=== PATIENT | female | born 1965 | race Caucasian/White ===

== ENCOUNTER 2017-02-21 10:38 | Emergency (ER) | payer MEDICAID ==
[~2017-02-21] VITALS: Wt 75.0 kg
[~2017-02-21 10:38] MED LIST: IBUP800T25 PO
--- NOTE | 2017-02-21 11:10 | ERD ---
ER Documentation Chief Complaint Date/Time DATE: 02/21/17 TIME: 11:08 Chief Complaint PELVIC PAIN, LOW BACK PAIN, ONSET 2 WEEKS HPI Patient is a 51-year-old female with no past medical history who presents to the ED with bilateral pelvic pain and vaginal bleeding 2 weeks. She states that her menstrual periods are monthly and within normal limits however this month she has been bleeding for the last 2 weeks. She states that she has been using 9 pads a day however in the last 2 days the pads have decreased to 2 a day. She states that the pain is on both sides of her pelvic. She denies chest pain or cough or shortness of breath. Denies leg pain or leg swelling. Denies headache or dizziness. She is taking ibuprofen for her symptoms which has minimally helped. She denies abnormal vaginal discharge. No other complaints. ROS All systems reviewed and are negative except as per history of present illness. Medications Home Meds Active Scripts Ferrous Sulfate* (Ferrous Sulfate*) 325 Mg Tabec, 325 MG PO DAILY for 90 Days, TAB Prov:ROSITA GUTIERREZ PA-C 02/21/17 Ibuprofen* (Motrin*) 600 Mg Tab, 600 MG PO Q6, #30 TAB Prov:ROSITA GUTIERREZ PA-C 02/21/17 Ibuprofen* (Motrin*) 800 Mg Tab, 800 MG PO Q8, #20 TAB Prov:CATHERINE MARX MD 04/01/16 Allergies Allergies: Coded Allergies: No Known Allergies (Verified Allergy, Mild, 02/21/17) PMhx/Soc History of Surgery: Yes (APPENDECTOMY; CHOLEYSTECTOMY;C SECTION) Anesthesia Reaction: No Hx Neurological Disorder: Yes (SYNCOPE) Hx Respiratory Disorders: No Hx Cardiac Disorders: No Hx Psychiatric Problems: No Hx Miscellaneous Medical Probl: Yes (SEVERE ANEMIA ) Hx Alcohol Use: No Hx Substance Use: No Hx Tobacco Use: No Smoking Status: Never smoker FmHx Family History: No coronary disease, No diabetes, No other Physical Exam Vitals Vital Signs Date Time Temp Pulse Resp B/P Pulse Ox O2 Delivery O2 Flow Rate FiO2 02/21/17 10:43 99.3 83 18 125/69 100 Physical Exam GENERAL: Well-developed, well-nourished female. Appears in no acute distress. HEAD: Normocephalic, atraumatic. EYES: Pupils are equally reactive bilaterally. EOMs grossly intact. No conjunctival erythema. ENT: Moist mucous membranes. No uvula deviation. No kissing tonsils. No exudates. NECK: Supple. No lymphadenopathy or thyromegaly. No meningismus. negative kernig. negative brudinski. LUNG: Clear to auscultation bilaterally. No rhonchi, wheezing, rales or coarse breath sounds. HEART: Regular rate and rhythm. No murmurs, rubs or gallops. ABDOMEN: No scars, ecchymosis or rashes noted. Soft, nontender, and nondistended. Positive bowel sounds in all four quadrants. No rebound tenderness , no guarding. (-) McBurneys point tenderness. No CVA tenderness. Bilateral pelvic tenderness and suprapubic tenderness. BACK: No midline tenderness. Extremities: Equal pulses bilaterally. No peripheral clubbing, cyanosis or edema. No unilateral leg swelling. NEUROLOGIC: Alert and oriented. Moving all four extremities. 5/5 strength in all extremities. Normal speech. Steady gait. SKIN: Normal color. Warm and dry. No rashes or lesions. Capillary refill < 2 seconds Result Diagram: 02/21/17 1134 Results 24 hrs Laboratory Tests Test 02/21/17 11:12 02/21/17 11:34 Urine Color YELLOW Urine Clarity SLIGHTLY CLOUDY Urine pH 5.0 Urine Specific [place] 1.027 Urine Ketones TRACEmg/dL Urine Nitrite NEGATIVEmg/dL Urine Bilirubin NEGATIVEmg/dL Urine Urobilinogen NEGATIVEmg/dL Urine Leukocyte Esterase NEGATIVELeu/ul Urine Microscopic RBC 0/HPF Urine Microscopic WBC 1/HPF Urine Squamous Epithelial Cells FEW/HPF Urine Bacteria FEW/HPF Urine Mucus FEW/HPF Urine Hemoglobin NEGATIVEmg/dL Urine Glucose 3+mg/dL Urine Total Protein NEGATIVEmg/dl White Blood Count 5.110^3/ul Red Blood Count 3.3210^6/ul Hemoglobin 9.5g/dl Hematocrit 28.9% Mean Corpuscular Volume 87.0fl Mean Corpuscular Hemoglobin 28.6pg Mean Corpuscular Hemoglobin Concent 32.9g/dl Red Cell Distribution Width 13.2% Platelet Count 03879^3/UL Mean Platelet Volume 11.5fl Neutrophils % 49.5% Lymphocytes % 41.6% Monocytes % 5.7% Eosinophils % 2.2% Basophils % 0.4% Nucleated Red Blood Cells % 0.0/100WBC Neutrophils # 2.510^3/ul Lymphocytes # 2.110^3/ul Monocytes # 0.310^3/ul Eosinophils # 0.110^3/ul Basophils # 0.010^3/ul Nucleated Red Blood Cells # 0.010^3/ul Current Medications Medications (Trade) Dose Ordered Sig/Radha Route PRN Reason Start Time Stop Time Status Last Admin Dose Admin Acetaminophen (Tylenol Tab) 650 mg ONCE ONCE PO 02/21/17 11:30 02/21/17 11:31 DC 02/21/17 11:20 Procedures/MDM ER COURSE: I kept the patient and/or family informed of laboratory and diagnostic imaging results throughout the emergency room course. EKG, MONITORS, & DIAGNOSTIC IMAGING: [place] [id number] Radiology Main Line: [phone] DIAGNOSTIC IMAGING REPORT Patient: KHANG ROMERO : 1965 Age: 51 Sex: F MR #: [id number] DOS: 02/21/17 1103 Ordering MD: ROSITA GUTIERREZ PA-C Location: [facility] Room/Bed: PROCEDURE: US Pelvis CLINICAL INDICATION: PELVIC PAIN, VAGINAL BLEEDING TECHNIQUE: Multiple sonographic images of the pelvis were obtained utilizing a transabdominal and endovaginal technique. The images were reviewed on a PACS workstation. COMPARISON: Pelvic ultrasound from 12/07/2014 LMP: 01/29/2017 FINDINGS: The uterus measures 10.9 x 6.3 x 8.4 cm. There is trace endocervical fluid with a split endometrial thickness of 10 mm. There is a 5.0 cm posterior subserosal and submucosal fibroid at the level of the mid body with prominent anterior displacement of the endometrium. There is a 3.9 cm posterior subserosal fibroid at the level of the upper body with mild anterior displacement of the endometrium. There is a 2.2 cm anterior intramural fibroid at the level of the upper body. The left ovary measures 2.7 x 1.7 x 2.4 cm. The right ovary is not visualized. There is normal vascular flow in the left ovary. No significant ovarian lesions are seen. No significant pelvic free fluid is identified. IMPRESSION: Multiple uterine fibroids are identified measuring up to 5 cm, compared with a diameter of 4 cm to the largest fibroid on the prior ultrasound study from 2014. The largest fibroid is noted to displace the endometrium, as above. Trace endocervical fluid without definite evidence of abnormal endometrial thickening. Nonvisualization of the right ovary. RPTAT: EE Luke Kirby Physician Date Time Electronically viewed and signed by Luke Kirby Physician on 02/21/2017 13:06 RA/ CC: ROSITA GUTIERREZ PA-C MEDICATIONS: Patient was given Tylenol. Tolerated well no adverse reaction LAB INTERPRETATION: CBC showed no evidence of having infection but did show anemia UA showed no evidence of leukocytes, nitrites or hematuria. Urine test was negative. MEDICAL DECISION MAKING: This is a 51-year-old female who presents with vaginal bleeding and pelvic pain 2 weeks. Vital signs were reviewed. Patient is afebrile. Patient is not hypoxic. Patient is not toxic or ill-appearing. Patient is hemodynamically stable at this point does not need blood transfusion. Her ultrasound is read by radiologist shows fibroids. Low suspicion for ectopic , , molar , endometriosis, PID, cervicitis, septic , molar , HELLP syndrome, preeclampsia, eclampsia, placenta previa, placenta abruptia. DISCHARGE: At this time, patient is stable for discharge and outpatient management with no new complaints during the ER course. Patient was sent home with iron, Motrin and to follow-up with a electric stove installer. List of electric stove installer in the area were given to patient. As well as a copy of her imaging. Patient will be discharged home with instructions to recheck for new or worsening symptoms such as fever, nausea, weakness, LOC and to follow up with primary care in the next 1-2 days. Patient was advised to return to the ER for any new or worsening symptoms. Plan was discussed and patient and/or family understands and agrees. Home instructions were given. Departure Diagnosis: Primary Impression: Fibroids Uterine leiomyoma location: unspecified location Qualified Code: D25.9 - Uterine leiomyoma, unspecified location Condition: Stable ROSITA GUTIERREZ PA-C Feb 21, 2017 11:10
[2017-02-21] MEDS ORDERED: ACETAMINOPHEN 325 MG TAB PO ONE (11:30)
[2017-02-21 11:42] LABS: ADD UMIC NO; UR ASCORBIC ACID 40 mg/dL (NEGATIVE); UR BACTERIA FEW /HPF (NONE SEEN); UR BILIRUBIN (Dip) NEGATIVE (NEGATIVE); UR BLOOD (Dip) NEGATIVE (NEGATIVE); UR CLARITY SLIGHTLY CLOUDY (CLEAR); UR COLOR YELLOW (YELLOW); UR GLUCOSE (Dip) 3+ mg/dL (NEGATIVE); UR KETONES (Dip) TRACE mg/dL (NEGATIVE); UR LEUKOCYTE ESTERASE (Dip) NEGATIVE Leu/ul (NEGATIVE); UR MUCUS FEW /HPF (NONE SEEN); UR NITRITE (Dip) NEGATIVE (NEGATIVE); UR RBC 0 /HPF (0-5); UR SPECIFIC GRAVITY (Dip) 1.027 (1.003-1.030); UR SQUAMOUS EPITHELIAL CELL FEW /HPF (FEW); UR TOTAL PROTEIN (Dip) NEGATIVE (NEGATIVE); UR UROBILINOGEN (Dip) NEGATIVE (NEGATIVE)
[2017-02-21 11:44] LABS: ADD SCAN DIFF NO
[2017-02-21 11:48] LABS: BASOPHILS % 0.4 % (0.0-2.0); EOSINOPHILS # 0.1 10^3/ul (0.0-0.5); EOSINOPHILS % 2.2 % (0.0-7.0); HEMATOCRIT 28.9 % (37.0-47.0); HEMOGLOBIN 9.5 g/dl (12.0-16.0); LYMPHOCYTES # 2.1 10^3/ul (0.8-2.9); LYMPHOCYTES % 41.6 % (15.0-51.0); MEAN CORPUSCULAR HEMOGLOBIN 28.6 pg (29.0-33.0); MEAN CORPUSCULAR HGB CONC 32.9 g/dl (32.0-37.0); MEAN PLATELET VOLUME 11.5 fl (7.4-10.4); MONOCYTE # 0.3 10^3/ul (0.3-0.9); MONOCYTES % 5.7 % (0.0-11.0); NEUTROPHIL # 2.5 10^3/ul (1.6-7.5); NEUTROPHILS % 49.5 % (39.0-77.0); PLATELET COUNT 267 10^3/UL (140-415); RED BLOOD COUNT 3.32 10^6/ul (4.20-5.40); RED CELL DISTRIBUTION WIDTH 13.2 % (11.5-14.5); WHITE BLOOD COUNT 5.1 10^3/ul (4.8-10.8)
--- NOTE | 2017-02-21 13:06 | RADRPT ---
PROCEDURE: US Pelvis CLINICAL INDICATION: PELVIC PAIN, VAGINAL BLEEDING TECHNIQUE: Multiple sonographic images of the pelvis were obtained utilizing a transabdominal and endovaginal technique. The images were reviewed on a PACS workstation. COMPARISON: Pelvic ultrasound from 12/07/2014 LMP: 01/29/2017 FINDINGS: The uterus measures 10.9 x 6.3 x 8.4 cm. There is trace endocervical fluid with a split endometrial thickness of 10 mm. There is a 5.0 cm posterior subserosal and submucosal fibroid at the level of the mid body with prom inent anterior displacement of the endometrium. There is a 3.9 cm posterior subserosal fibroid at the level of the upper body with mild anterior dis placement of the endometrium. There is a 2.2 cm anterior intramural fibroid at the level of the upper body. The left ovary measures 2.7 x 1.7 x 2.4 cm. The right ovary is not visualized. There is normal vascu lar flow in the left ovary. No significant ovarian lesions are seen. No significant pelvic free fluid is identified. IMPRESSION: Multiple uterine fibroids are identified measuring up to 5 cm, compared with a diameter of 4 cm to t he largest fibroid on the prior ultrasound study from 2014. The largest fibroid is noted to displace the endometrium, as above. Trace endocervical fluid without definite evidence of abnormal endometrial thickening. Nonvisualization of the right ovary. RPTAT: EE Physician Juliet Date Time Electronically viewed and signed by Physician Juliet on 02/21/2017 13:06 /
[2017-02-21] MEDS ORDERED: IBUP-1542 PO (13:34)
[2017-02-21] MEDS ORDERED: FER325 PO (13:35)
== END 2017-02-21 14:15 | disposition home or self-care (01) ==
LOC: FTE 10:38
DX: D25.9 Leiomyoma of uterus, unspecified (principal)
CPT/HCPCS: 76830; 76856; 81001; 85025; Z7610; 36415; 81003

== ENCOUNTER 2017-11-15 16:06 | Emergency (ER) | END 2017-11-15 21:54 | disposition home or self-care (01) ==

== ENCOUNTER 2018-03-10 08:20 | Emergency (ER) | END 2018-03-10 12:57 | disposition home or self-care (01) ==

== ENCOUNTER 2018-08-03 07:45 | Emergency (ER) | END 2018-08-03 10:38 | disposition home or self-care (01) ==